=== PATIENT | male | born 1995 | race Caucasian/White ===

== ENCOUNTER 2024-03-21 19:29 | Emergency (ER) | payer OTHER, SELFPAY ==
--- NOTE | ~2024-03-21 | XR_ITS ---
EXAMINATION: XR LUMBOSACRAL SPINE CLINICAL INFORMATION: Low back pain. COMPARISON: None available. TECHNIQUE: Three views of the lumbosacral spine. FINDINGS: Mild right apical curvature. No evidence of acute compression deformity or traumatic subluxation. Intervertebral disc heights and posterior elements are within normal limits. SI joints are symmetric. No significant paraspinal soft tissue abnormality. XR/XR lumbar spine 2-3V IMPRESSION: No significant radiographic abnormality.
--- NOTE | 2024-03-21 20:09 | ED_ITS ---
HPI - General Adult General Chief complaint: Back Pain/Injury Stated complaint: Lower back pain, unable to sit Time Seen by Provider: 03/21/24 23:25 Source: patient Mode of arrival: ambulatory Limitations: no limitations History of Present Illness HPI narrative: Patient is a 28 year old assigned male at with no reported medical history presenting to the emergency department today with low back pain. Patient states that he bent over to get the trash at 10 this morning and ever since he has had stabbing back pain and is unable to sit. Patient denies any dizziness, lightheadedness, abdominal pain, nausea, vomiting, fever, chills, blurry vision, double vision, loss of vision, chest pain, difficulty breathing, shortness of breath, night sweats, pain with urination, increased urinary frequency, increased urinary urgency, blood in his urine or stool, syncope or a near syncopal episode, bowel incontinence, bladder incontinence, bowel retention, bladder retention, or any other complaints at this time. Onset (ago): hour(s) Location: back Severity: moderate Severity scale (1-10): 5 Quality: aching Pain Consistency: constant Relieving factors: none Exacerbating factors: other (sitting) Associated symptoms: denies other symptoms Treatments prior to arrival: other (flexeril) Related Data Previous Rx's ?Medication ?Instructions ?Recorded celecoxib 200 mg capsule (Celebrex) 200 mg PO BID 2 weeks #28 caps 03/21/24 prednisone 20 mg tablet 20 mg PO DAILY 7 days #7 tabs 03/21/24 Allergies Allergy/AdvReac Type Severity Reaction Status Date / Time No Known Allergies Allergy Verified 03/21/24 20:12 Review of Systems Constitutional: Constitutional: Reports no additional constitutional complaints, Denies chills, Denies fever(s) and Denies night sweats Eyes: Eyes: Reports no additional eye complaints, Denies blurry vision, Denies change in vision, Denies diplopia, Denies eye discharge, Denies loss of vision and Denies eye pain ENT: Denies dizziness Cardiovascular: Cardiovascular: Reports no additional cardiovascular complai nts, Denies chest pain, Denies lightheadedness, Denies Loss of Consciousness and Denies dyspnea Respiratory: Respiratory: Reports no additional respiratory complaints and Denies dyspnea Gastrointestinal: Gastrointestinal: Reports no additional gastrointestinal complaints, Denies abdominal pain, Denies melena, Denies hematochezia, Denies change in bowel habits and Denies change in stool character Genitourinary: Genitourinary: Reports no additional male genitourinary complaints, Denies hematuria, Denies oliguria, Denies difficulty urinating, Denies dysuria, Denies urinary frequency, Denies urinary hesitancy, Denies urinary incontinence and Denies urinary urgency Musculoskeletal: Musculoskeletal: Reports no additional musculoskeletal complaints, Reports back pain, Denies numbness and Denies tingling Neurologic: Denies dizziness, Denies loss of vision, Denies numbness and Denies tingling Psychiatric: Psychiatric: Reports no additional psychiatric complaints Endocrine: Endocrine: Reports no additional endocrine complaints Hematologic/Lymphatic: Hematologic/Lymphatic: Reports no additional hematologic/lymphatic complaints Allergic/Immunologic: Allergic/Immunologic: Reports no additional allergic/immunologic complaints PMFSH Past Medical History Attestation statement: The following information was validated with the patient. Source: old records reviewed and nursing notes reviewed Social History Social History Advance Directives: No Advance Directives Information Provided: No Do you have a plan to hurt others: No Plan Physical Exam ED Vital Signs: Vital Signs - 24 hr 03/21/24 20:10 03/22/24 00:15 Temperature 97.8 F 97 F Pulse Rate 84 64 Respiratory Rate 18 16 Blood Pressure 146/89 H 127/74 Pulse Oximetry 100 97 Oxygen Delivery Method Room Air Room Air BMI result Body Mass Index 21.8 Const General: cooperative, no acute distress, alert and awake Nutritional Appearance: well nourished Orientation/consciousness: patient oriented x3 Limitations: no limitations [facility] Head: Yes normal to inspection and Yes atraumatic Ears: hearing grossly normal bilaterally and external ears normal General nose exam: Normal external nose present, no nasal discharge noted and no epistaxis Face and sinus: Yes normal facial exam, No abrasion and No laceration Mouth: Normal oral and palatal mucosa present, no drooling and no muffled voice Eyes General: appearance normal, both eyes and all related structures Periorbital: periorbital findings normal Eyelids: Yes eyelids normal Conjunctivae: conjunctivae normal Pupils: Equal, round and reactive pupils present EOM: EOMs intact bilaterally Neck Neck: Yes normal visual inspection, Yes full ROM and Yes no lymphadenopathy Chest Chest palpation & inspection: normal inspection of the chest Resp Effort & Inspection: normal respiratory effort and able to speak in complete sentences GI Inspection: Yes normal to inspection General: Yes no CVA tenderness Back/Spine/Pelvis Back: no CVA tenderness Cervical Spine: normal cervical lordosis and cervical ROM normal Thoracic/Lumbar Spine: thoracic and lumbar spine normal to inspection and thoraco-lumbar ROM normal (but painful) Neuro General: patient oriented x3 and moves all extremities Cranial nerves: Yes Equal, round and reactive pupils present Cognition (Neuro): normal cognition Motor exam (neuro): 5/5 motor strength present throughout Sensory Exam: Normal double simultaneous stimulation for sensation Coordination: [id number] test normal Extrem General: Yes normal to inspection, Yes full ROM and Yes capillary refill normal Psych Appearance: grossly normal Mental Status: mental status grossly normal Affect: normal affect Attitude: cooperative Thought process: Normal thought process present Thought content: Normal thought content present Insight: Good insight present (Psych) Course Course Course Narrative: This is an RME: Additional HPI, ROS, PE not included below will be deferred to primary provider. 28 yo m presents with lower back pain after changing garbage bags at 10:00 this morning. Denies trauma or recent injury. Denies incontinence of bowel/bladder, numbness, tingling. Medications Administered Discontinued Medications Generic Name Dose Route Start Last Admin Trade Name Darynq PRN Reason Stop Dose Admin Cyclobenzaprine HCl 10 mg 03/21/24 20:12 03/21/24 20:19 Cyclobenzaprine Hcl 10 Mg Tablet PO 03/21/24 20:13 10 mg ONCE ONE Administration Diazepam 2 mg 03/21/24 23:34 03/22/24 00:08 Diazepam 2 Mg Tablet PO 03/21/24 23:35 2 mg ONCE ONE Administration Ketorolac Tromethamine 30 mg 03/21/24 20:12 03/21/24 20:19 Ketorolac Tromethamine 15 Mg/Ml Vial IM 03/21/24 20:13 30 mg ONCE ONE Administration Lidocaine 1 patch 03/21/24 20:12 03/21/24 20:18 Lidocaine 4 % Patch Adh..Patch TRANSDERMA 03/21/24 20:13 1 patch ONCE ONE Administration Protocol Methylprednisolone Sodium Succinate 60 mg 03/21/24 23:34 03/22/24 00:08 Methylprednisolone Sod Succ 125 Mg/2 Ml Vial IM 04/29/24 23:35 60 mg ONCE ONE Administration Medical Decision Making Medical Decision Making MDM Narrative: Patient is a 28 year old assigned male at with no reported medical history presenting to the emergency department today with low back pain. Patient's physical exam was as noted in the physical exam portion of this note. Patient's lumbar x-ray showed no acute process. I explained my physical exam findings as well as all test results to the patient. I answered all questions asked by the patient. Patient received multiple medications which he stated helped his pain some. I stressed the importance of the patient taking his medication as prescribed. I stressed the importance of the patient following up with his primary care provider and a research laboratory specialist. I stressed the importance of the patient returning to the emergency department immediately if his symptoms were to worsen or if he were to develop any dizziness, shortness of breath, difficulty breathing, chest pain, blurry vision, loss of vision, nausea, vomiting, abdominal pain, fever, chills, back pain, or any other complaints. Patient verbalized agreement and understanding with this treatment plan and discharge. Differential Diagnosis Differential Diagnoses: The differential diagnosis associated with the presentation includes Low back pain Lumbar sprain Lumbar strain Herniated disc Admission/Observation Consideration of admission/observation: Escalation of care including admission/observation considered Patient would have been admitted to the hospital had his work up had any fin dings where hospital admission was appropriate and his clinical presentation warranted hospital admission. Independent Interpretation I performed an independent interpretation of an: Plain X-Ray Interpretation: My interpretation is in agreement with the radiologist's impression of this imaging study. EXAMINATION: XR LUMBOSACRAL SPINE CLINICAL INFORMATION: Low back pain. COMPARISON: None available. TECHNIQUE: Three views of the lumbosacral spine. FINDINGS: Mild right apical curvature. No evidence of acute compression deformity or traumatic subluxation. Intervertebral disc heights and posterior elements are within normal limits. SI joints are symmetric. No significant paraspinal soft tissue abnormality. XR/XR lumbar spine 2-3V IMPRESSION: No significant radiographic abnormality. Dictated By: Idania Romano Signed By: Electronically signed by Idania Romano 03/21/24 8108 Radiology Impression Discussion of test interpretation with radiology: I have reviewed the radiologist's reading. Prescription Management I considered prescription management with: Pain Medication (patient prescribed pain medication) Critical Care Time Critical Care Time Critical Care Time: Yes Total Critical Care Time: 88 Attestation: I spent 88 minutes of Critical Care Time with this patient. This does not include time spent on separately reported billable procedures. Discharge Plan Discharge Clinical Impression: Strain of lumbar region Patient Disposition: Home, Self-Care Instructions: Acute Low Back Pain (ED), Lower Back Exercises (ED) Additional Instructions: Follow up with your primary care provider and a research laboratory specialist. Return to the emergency department immediately if your symptoms worsen or if you develop any dizziness, shortness of breath, difficulty breathing, chest pain, blurry vision, loss of vision, nausea, vomiting, abdominal pain, fever, chills, back pain, or any other complaints. Prescriptions: New celecoxib [Celebrex] 200 mg capsule 200 mg PO BID 14 Days Qty: 28 0RF prednisone 20 mg tablet 20 mg PO DAILY 7 Days Qty: 7 0RF Referrals: [facility] [[facility]] (Call to establish and follow up with a primary care provider. If you already have a primary care provider, please follow up with them.) [facility]] [facility]] [facility] [Provider Group] (Call [phone] to establish and follow up with a research laboratory specialist.) Stand Alone Forms: Work/School Release Interventions: ED Discharge Assessment Last Done: 03/22/24 00:15 Discharge Date/Time: 03/22/24 00:17 Print Language: Martiniquais
[2024-03-21 20:10] VITALS: BP 146/89; PULSE 84; RESP 18; TEMP 36.6; O2SAT 100; BMI 21.8
[2024-03-21] MEDS: Lidocaine 4 % Patch ADH..PATCH 1 PATCH TRANSDERMA (20:18)
[2024-03-21] MEDS: Ketorolac Tromethamine 15 MG/ML VIAL 30 MG IM (20:19)
[2024-03-21] MEDS: Cyclobenzaprine HCl 10 MG TABLET PO (20:19)
[2024-03-22] MEDS: methylPREDNISolone Sod Succ 125 MG/2 ML VIAL 60 MG IM (00:08)
[2024-03-22] MEDS: diazePAM 2 MG TABLET PO (00:08)
[2024-03-22 00:15] VITALS: BP 127/74; PULSE 64; RESP 16; TEMP 36.1; O2SAT 97
== END 2024-03-22 00:17 | disposition home or self-care (01) ==
PROVIDERS: Emergency Provider Emergency Medicine
DX: S39.012A Strain of muscle, fascia and tendon of lower back, initial encounter (principal); X58.XXXA Exposure to other specified factors, initial encounter; Y93.9 Activity, unspecified; Y92.9 Unspecified place or not applicable; Y99.8 Other external cause status
CPT/HCPCS: 72100; 96372; 99283; 99284; J1885; J2919